=== PATIENT | female | born 1980 | race Caucasian/White ===

== ENCOUNTER 2017-03-01 17:06 | Emergency (ER) | payer SELFPAY ==
[~2017-03-01] VITALS: Ht 170.2 cm; Wt 91.5 kg
[~2017-03-01 17:06] MED LIST: CYCL-375 PO; IBUP-1724 PO; LISI-621 PO; LISI1TAB13 PO; TRAM50TA4 PO
[2017-03-01 17:10] VITALS: Ht 170.2 cm; Wt 91.5 kg
--- OUTSIDE RECORDS SUMMARY | 2017-03-01 17:11 | XMS REPORT | Continuity of Care Document ---
Author Author Ev Chiang Ev Address Unknown Phone Unavailable Care Team Providers Care Field Sales Engineer Name Role Phone [employer] Unavailable Unavailable Problems Medications Allergies, Adverse Reactions, Alerts Immunizations Results Vital Signs Encounters Location Location Details Encounter Type Encounter Number Reason For Visit Attending Provider ADM Date DC Date Status Source [facility] [id number] Emergency [id number] Lincoln Teran 06/19/201304/2013 Active [facility], [facility]. Procedures Plan of Care Social History Assessment and Plan Family History Value Date Source Advance Directives Order Name Results Value Date Source
--- OUTSIDE RECORDS SUMMARY | 2017-03-01 17:11 | XMS REPORT | Continuity of Care Document ---
Author Author [facility] Organization [facility] Address Unknown Phone Unavailable Care Team Providers Care Color Shop Helper Name Role Phone Carmen Bhatt Primary Care Physician [phone] Source Comments Some departments are not documenting in the electronic medical record. If you do not see the information that you expected, contact Release of Information in the Health Information Management department at [phone] for further assistance in locating additional records.[facility] Active Allergies and Adverse Reactions No Known Allergies Current Medications Prescription Sig. Disp. Refills Start End Date Status Date PRAMIPEXOLE DI-HCL Take by mouth. Active (MIRAPEX PO) CYCLOBENZAPRINE HCL Take by mouth. Active (FLEXERIL PO) trimethoprim/sulfamethoxa Take 1 Tab by mouth Twice 20 0 03/04/20 Active zole (BACTRIM DS) 160/800 Daily. 09 mg tablet Active Problems Not on file Social History Tobacco Use Types Packs/Day Years Used Date Never Smoker Alcohol Use Drinks/Week oz/Week Comments No Last Filed Vital Signs Vital Sign Reading Time Taken Blood Pressure 146/89 03/04/2009 3:47 PM CDT Pulse 120 03/04/2009 3:47 PM CDT Temperature 36.9 C (98.4 F) 03/04/2009 3:47 PM CDT Respiratory Rate - - Height - - Weight - - Body Mass Index - - Oxygen Saturation 99% 03/04/2009 3:47 PM CDT Plan of Care Health Maintenance Due Date Last Done Comments Physical (Comprehensive) 1987 Exam Pertussis Vaccine 1991 Tetanus Vaccine 1997 Cervical Cancer Screening 2001 Influenza Vaccine 06/13/2017 Results from Last 3 Months Not on file
--- OUTSIDE RECORDS SUMMARY | 2017-03-01 17:12 | XMS REPORT | Continuity of Care Document ---
Author Author [facility] Organization [facility] Address Unknown Phone Unavailable Support Name Relationship Address Phone FEBRUARY, CHON M DO Caregiver [address] [place] [address] Unavailable RL STEELE Next Of Kin [address] [place], [place] [id number] Insurance Providers Guarantor Lexi Ortiz Address [address] [place] [address] Email DENIED 12-11-16 Payer Self Pay Subscriber's Name Lexi Ortiz Relationship 18 Self Chief Complaint and Reason for Visit Chief Complaint Neck Pain Reason for Visit [id number] Muscle cramps Hypertension Problems Active Problems Medical Problem Onset Date Status Muscle cramps Unknown Acute Overuse syndrome of neck Unknown Acute Past Problems Medical Problem Onset Date Acute bronchitis Unknown Cough Unknown Hypertension Unknown Pneumonia Unknown Wheezing Unknown Medications Current Home Medications Medication Dose Units Route Directions Days Qty Instructions Start Date Cyclobenzaprine Hcl 10 Mg Tablet 1 Tab Oral Three Times A Day for Muscle Pain 20 Tablet 12/11/16 Ibuprofen 200 Mg Tablet 800 Mg Oral Every 8 Hours as needed for Pain 08/16/16 Lisinopril 20 Mg Tablet 20 Mg Oral Daily 08/16/16 Lisinopril/Hydrochlorothiazide (Lisinopril-Hctz 20-25 Mg Tab) 1 Each Tablet 1 Tab Oral Daily 30 12/11/16 Tramadol Hcl 50 Mg Tablet 50 Mg Oral Q6h/0300,0900,1500,2100 for Pain 20 Tablet Take 1 tablet, by mouth, every 6 hours. 12/11/16 Past Home Medications Medication Directions Ordered Status Albuterol Sulfate (Proair Hfa 90 Mcg/Actuation) 8.5 Gm Hfa.aer.ad, 2 Puff Inhalation Every 4 Hours as needed for Wheezing 08/19/16 Discontinued Albuterol Sulfate 2.5 Mg/0.5 Ml Vial.neb, 1 Vial Aerosol Tx. Every 4 Hours Discontinued Azithromycin 250 Mg Tablet, 1 Tab Oral Daily 08/17/16 Discontinued Hydrocodone/Acetaminophen (Ivins 5-325 Tablet) 5-325 Tablet, 0.5-1 Tab Oral Four Times Daily as needed for Cough 08/17/16 Discontinued Prednisone 20 Mg Tablet, 20 Mg Oral Per Comments 08/19/16 Discontinued Social History Social History Problem Response Recorded Date/Time Onset Date Status Hx Substance Use No 12/11/2016 10:48pm Not Applicable Not Applicable Hx Alcohol Use Y OCC 12/11/2016 10:48pm Not Applicable Not Applicable Query Response Start Date Stop Date Smoking Status Current every day smoker Hospital Discharge Instructions No hospital discharge instructions. Plan of Care Discharge Date 12/11/16 10:45pm Disposition 01 DISCHARGED HOME, SELF-CARE Condition at Discharge Stable Instructions/Education Provided Hypertension (ED) Acute Neck Pain (ED) Prescriptions See Medication Section Referrals [facility] Order Date: 1 Week Note: Additional Instructions/Education HEAT OR ICE TO NECK FOR COMFORT. CONTINUE MOTRIN 800 MG EVERY 8 HOURS; SUPPLEMENT WITH TRAMADOL FOR SEVERE PAIN. USE FLEXERIL EVERY 8 HOURS FOR MUSCLE SPASMS. Functional Status No functional status results. Allergies, Adverse Reactions, Alerts Allergen Type Severity Reaction Status Last Updated Morphine Allergy Unknown HIVES Active 08/19/16 Immunizations Query Response on File Recorded Date/Time Influenza Vaccine Hx no 12/11/16 10:48pm Vital Signs Acute Vital Signs Vital Response Date/Time Temperature (Fahrenheit) 98.1 deg F (96.8 - 99.1) 12/11/2016 10:43pm Temperature (Calculated Celsius) 36.27317 degrees C (36.0 - 37.3) 12/11/2016 10:43pm Pulse Rate (adult) 90 bpm (60 - 100) 12/11/2016 10:43pm Respiratory Rate 16 breaths/min (10 - 20) 12/11/2016 10:43pm O2 Sat by Pulse Oximetry 97 % (90 - 100) 12/11/2016 10:43pm Blood Pressure 168/102 mm Hg 12/11/2016 10:43pm Height (Feet) 5 feet 12/11/2016 9:30pm Height (Inches) 7.00 inches 12/11/2016 9:30pm Weight (Kilograms) 93.700 kg 12/11/2016 9:30pm Body Mass Index (BMI) 32.0 12/11/2016 9:30pm Results No known relevant diagnostic tests, laboratory data and/or discharge summary. Procedures No known history of procedures. Encounters Encounter Location Arrival/Admit Date Discharge/Depart Date Attending Provider Departed Emergency Room [facility] 12/11/16 9:30pm 12/11/16 10: 45pm CHON COSTELLO DO Recent Diagnosis
--- OUTSIDE RECORDS SUMMARY | 2017-03-01 17:12 | XMS REPORT | Continuity of Care Document ---
Author Author [facility] Organization [facility] Address Unknown Phone Unavailable Allergies Active Description Code Type Severity Reaction Onset Reported/Identified Relationship to Patient Clinical Status Yes No Known Contrast Allergies No Known Contrast Allergies Drug Allergy Unknown N/A 03/14/2007 Yes No Known Drug Allergies No Known Drug Allergies Drug Allergy Unknown N/A 03/14/2007 Yes No Known Food Allergies No Known Food Allergies Drug Allergy Unknown N/A 03/14/2007 Yes NO KNOWN LATEX ALLERGY/SENSITI NO KNOWN LATEX ALLERGY/SENSITI Drug Allergy Unknown N/A 2006 Yes morphine morphine Drug Allergy Severe HIVES 01/20/2017 Medications Medication Packaging Start Date Stop Date Route Dosage Sig Sertraline HCl 100 MG Oral Tablet UD 02/04/2017 04/06/2017 ORAL 100MG Take 1/2 po daily for 1 week and then increase to 1 po daily HydrOXYzine HCl 25 MG Oral Tablet UD 02/04/2017 05/06/2017 ORAL 25MG Take 1 po TID prn anxiety Problems Date Dx Coded Attending Type Code Diagnosis Diagnosed By 01/27/2017 F F41.0 Panic disorder [episodic paroxysmal anxiety] without agoraphobia [facility] 01/27/2017 F F41.0 Panic disorder [episodic paroxysmal anxiety] without agoraphobia Psy, Batch 01/27/2017 F F90.1 Attention-deficit hyperactivity disorder, predominantly hyperactive type Psy, Batch 01/27/2017 F F41.1 Generalized anxiety disorder Psy, Batch 01/27/2017 F F41.1 Generalized anxiety disorder Kathleen, [facility] 01/27/2017 F F90.1 Attention-deficit hyperactivity disorder, predominantly hyperactive type Kathleen [facility] 01/27/2017 F I10 Essential (primary) hypertension Kathleen [facility] 01/27/2017 F Z56.0 Unemployment, unspecified [facility] 01/27/2017 F Z59.1 Inadequate housing [facility] 01/27/2017 F Z59.5 Extreme poverty Beatriz Wang 01/27/2017 F Z75.3 Unavailability and inaccessibility of health-care facilities Beatriz Wang 02/04/2017 F F41.0 Panic disorder [episodic paroxysmal anxiety] without agoraphobia Constance Bullock 02/04/2017 F F41.1 Generalized anxiety disorder Constance Bullock 02/04/2017 F F43.10 Post-traumatic stress disorder, unspecified Constance Bullock 02/04/2017 F F90.1 Attention-deficit hyperactivity disorder, predominantly hyperactive type Constance Bullock 02/04/2017 F I10 Essential (primary) hypertension Constance Bullock 02/04/2017 F Z56.0 Unemployment, unspecified Constance Bullock 02/04/2017 F Z59.1 Inadequate housing Constance Bullock 02/04/2017 F Z59.5 Extreme poverty Constance Bullock 02/04/2017 F Z75.3 Unavailability and inaccessibility of health-care facilities Constance Bullock 02/04/2017 F F41.0 Panic disorder [episodic paroxysmal anxiety] without agoraphobia Allie Bhatt 02/04/2017 F F41.1 Generalized anxiety disorder Allie Bhatt 02/04/2017 F F90.1 Attention-deficit hyperactivity disorder, predominantly hyperactive type Allie Bhatt 02/04/2017 F Z56.0 Unemployment, unspecified Allie Bhatt 02/04/2017 F F41.0 Panic disorder [episodic paroxysmal anxiety] without agoraphobia Psy, Batch 02/04/2017 F F41.1 Generalized anxiety disorder Psy, Batch 02/04/2017 F F90.1 Attention-deficit hyperactivity disorder, predominantly hyperactive type Psy, Batch 02/04/2017 F Z56.0 Unemployment, unspecified Psy, Batch Procedures Code [place] [address] Beatriz Wange 01/27/2017 [id number] Beatriz Wange 01/27/2017 54885 OFFICE/OUTPATIENT VISIT, LORAINE Bullock Constance R 02/04/2017 [id number] OFFICE/OUTPATIENT VISIT, LORAINE Bullock Constance R 02/04/2017 Results Test Result Range CHEM/HEM PROFILE-BEDSIDE - 01/20/17 00:51 POTASSIUM 3.6 mmol/L 3.5-5.3 METHOD Bedside ANION GAP 15 mmol/L 10-20 METHOD Bedside GLUCOSE 98 mg/dL 70-99 BLOOD UREA NITROGEN 17 mg/dL 7-20 CREATININE 0.7 mg/dL 0.6-1.0 HEMOGLOBIN 14.3 gm/dL 12.0-16.0 HEMATOCRIT 42.0 % 37.0-47.0 SODIUM 142 mmol/L 135-148 CHLORIDE 107 mmol/L 98-110 CARBON DIOXIDE 25 mmol/L 21-32 CALCIUM IONIZED 4.6 mg/dL 4.5-5.3 CBC W/DIFF - 01/20/17 01:00 BASOPHIL # 0.1 k/cumm 0.0-0.2 BASOPHIL % 1 % 0-1 EOSINOPHIL # 0.4 k/cumm 0.1-0.5 EOSINOPHIL % 3 % 2-4 GRANULOCYTE # 8.8 k/cumm 2.0-9.0 GRANULOCYTE % 67 % 50-75 LYMPHOCYTE # 3.2 k/cumm 1.0-4.0 LYMPHOCYTE % 24 % 20-30 MEAN CELL HGB 30.2 pg 27.0-33.0 MEAN CELL HGB CONCENTRATION 32.8 g/dL 32.0-37.0 MEAN CELL VOLUME 92.1 fl 80.0-100.0 MONOCYTE # 0.6 k/cumm 0.1-1.0 MONOCYTE % 5 % 4-6 RED BLOOD CELL 4.44 m/cumm 4.00-6.00 RED CELL DISTRIBUTION WIDTH 13.1 % 11.0- 15.6 WHITE BLOOD CELL 13.2 k/cumm 5.0-10.0 HEMOGLOBIN 13.4 gm/dL 12.0-16.0 HEMATOCRIT 40.9 % 37.0-47.0 PLATELET COUNT 276 k/cumm 150-400 TROPONIN I BEDSIDE - 01/20/17 01:00 METHOD Bedside TROPONIN I < 0.04 ng/mL < 0.11 Encounters ACCT No. Visit Date/Time Discharge Status Pt. Type Provider Facility Loc./Unit Complaint [id number] 09/27/2014 15:40:00 09/27/2014 16:14:00 DIS Emergency [facility] [id number] 09/15/2014 13:35:00 09/15/2014 15:36:00 [id number] 02/10/2014 12:59:00 02/10/2014 15:42:00 DIS Emergency [facility]
[2017-03-01] MEDS ORDERED: ACET-62 PO (17:49)
[2017-03-01] MEDS ORDERED: AMLO10TA4 PO (17:51)
--- NOTE | 2017-03-01 18:20 | NUR ---
REPORT REPORT TO AND CARE ASSUMED BY ROWAN GRAY
--- OUTSIDE RECORDS SUMMARY | 2017-03-01 18:28 | XMS REPORT | Continuity of Care Document ---
Author Author Ev Chiang Ev Address Unknown Phone Unavailable Care Team Providers Care Color Technician Name Role Phone [employer] Unavailable Unavailable Problems Medications Allergies, Adverse Reactions, Alerts Immunizations Results Vital Signs Encounters Location Location Details Encounter Type Encounter Number Reason For Visit Attending Provider ADM Date DC Date Status Source [facility] [id number] Emergency [id number] Lincoln Teran 06/19/201304/2013 Active [facility], [facility]. Procedures Plan of Care Social History Assessment and Plan Family History Value Date Source Advance Directives Order Name Results Value Date Source
--- OUTSIDE RECORDS SUMMARY | 2017-03-01 18:28 | XMS REPORT | Continuity of Care Document ---
Author Author [facility] Organization [facility] Address Unknown Phone Unavailable Care Team Providers Care Insurance Underwriter Sales Name Role Phone Carmen Bhatt Primary Care Physician [phone] Source Comments Some departments are not documenting in the electronic medical record. If you do not see the information that you expected, contact Release of Information in the Health Information Management department at [phone] for further assistance in locating additional records.[facility] Active Allergies and Adverse Reactions No Known [...]
--- OUTSIDE RECORDS SUMMARY | 2017-03-01 18:29 | XMS REPORT | Continuity of Care Document ---
Author Author [facility] Organization [facility] Address Unknown Phone Unavailable Allergies Active Description [...] disorder [episodic paroxysmal anxiety] without agoraphobia [facility] 01/27/2017 F F41.0 Panic disorder [episodic paroxysmal anxiety] without agoraphobia Psy, Batch 01/27/2017 F F90.1 Attention-deficit hyperactivity disorder, predominantly hyperactive type Psy, Batch 01/27/2017 F F41.1 Generalized anxiety disorder Psy, Batch 01/27/2017 F F41.1 Generalized anxiety disorder Kathleen, [facility] 01/27/2017 F F90.1 Attention-deficit hyperactivity disorder, predominantly hyperactive type Kathleen [facility] 01/27/2017 F I10 Essential (primary) hypertension Kathleen [facility] 01/27/2017 F Z56.0 Unemployment, unspecified Kathleen [facility] 01/27/2017 F Z59.1 Inadequate housing Kathleen [facility] 01/27/2017 F Z59.5 Extreme poverty Beatriz Wang 01/27/2017 F Z75.3 Unavailability and inaccessibility of health-care facilities Beatriz Wang 02/04/2017 F F41.0 Panic disorder [episodic paroxysmal anxiety] without agoraphobia Contsance Bullock 02/04/2017 F F41.1 Generalized anxiety disorder Constance Bullock 02/04/2017 F F43.10 Post-traumatic stress disorder, unspecified Constance Bullock 02/04/2017 F F90.1 Attention-deficit hyperactivity disorder, predominantly hyperactive type Constance Bullock 02/04/2017 F I10 Essential (primary) hypertension Constance Bullock 02/04/2017 F Z56.0 Unemployment, unspecified Constance Bulolck 02/04/2017 F Z59.1 Inadequate housing Constance Bullock [...] Procedures Code [place] [address] Beatriz Wange 01/27/2017 [id number] Beatriz Wange 01/27/2017 [id number] OFFICE/OUTPATIENT VISIT, LORAINE Bullock Constance R 02/04/2017 [id number] OFFICE/OUTPATIENT VISIT, LORAINE Bullock Constance R 02/04/2017 [...] Status Pt. Type Provider Facility Loc./Unit Complaint [id number] 09/27/2014 15:40:00 09/27/2014 16:14:00 DIS Emergency [facility] [id number] 09/15/2014 13:35:00 09/15/2014 15:36:00 [id number]/10[facility]2014 12:59:00 02/10/2014 15:42:00 DIS Emergency [facility]
--- NOTE | 2017-03-01 18:45 | NUR ---
IMAGING PT TO IMAGING VIA CART AT THIS TIME. C-COLLAR IN PLACE. NO SIGN OF DISTRESS. TRANSFERRED FROM CART TO IMAGING BED X3 - C-SPINE MAINTAINED.
--- NOTE | 2017-03-01 18:51 | ERPDOC ---
Departure Disposition Decision Date: March 01, 2017 Disposition Decision Time: 19:40 Disposition: 01 DISCHARGED HOME, SELF-CARE Impression Impression Impression: Primary Impression: Muscle strain Severity: Moderate Condition: Improved Seen By: Physician only Referrals: [facility] 2 Days Patient Instructions: Head Injury (ED), Muscle Spasm (ED) Problems/Meds/Labs Reviewed?: Yes Medications reviewed and manag: Yes Follow up care ordered?: Yes Mental Status: Alert, Oriented Scripts Cyclobenzaprine HCl (Cyclobenzaprine HCl) 10 Mg Tablet 10 MG PO TID Y for MUSCLE SPASM for 5 Days, #15 TAB 0 Refills Prov: PATTIE SARKAR DO 03/01/17 Oxycodone HCl/Acetaminophen (Percocet 5-325 mg Tablet) 5-325 Tablet 1 TAB PO Q4HR Y for PAIN for 3 Days, #18 TAB 0 Refills Prov: PATTIE SARKAR DO 03/01/17 HPI - Fall/Injury General Chief Complaint: Fall Stated Complaint: FELL,BACK PAIN Time Seen by Provider: 18:08 Source: patient Exam Limitations: no limitations HPI - Fall/Injury Initial Comments 36-year-old female presents to emergency department with a chief complaint of a fall. Patient [place]. Patient notes that she did hit her head and is complaining of head and neck discomfort. Patient describes her discomfort as moderate. It is sharp. There is no radiation. Pain improves with analgesic pain medication and increases with movement. Patient denies any other injuries. No other complaints or associated symptoms. Her symptoms have been persistent in nature since onset. There was no loss of consciousness. Occurred At: other ([place]) Onset: Constant Allergies: Coded Allergies: morphine (Verified Allergy, Unknown, HIVES, 03/01/17) Past History Past Medical History Metabolic: hypertension Surgical History Denies Surgeries Family History Family History: Negative Social History Smoking Status: Never smoker Does patient use chewing tobac: No Second Hand Exposure: No Substance Use Type: does not use Alcohol Intake: none Review of Systems Constitutional Constitutional: DENIES: chills, fever Eyes General: DENIES: erythema, exudate Lids/Accessories: DENIES: erythema, swelling Vision: DENIES: acuity, blurring ENMT Ears: DENIES: drainage, pain Hearing: DENIES: hearing loss Balance: DENIES: ataxia, falling to one side Sinuses: DENIES: congestion, pain Nose: DENIES: nosebleeds, pain Mouth/Throat: DENIES: painful swallowing, sore throat Teeth: DENIES: pain Jaw: DENIES: pain Cardiovascular Rhythm/Rate: DENIES: irregular beat, palpitations Vascular: DENIES: pedal edema, unilateral swelling Pulmonary Respiratory: DENIES: cough, dyspnea, pleuritic chest pain, sputum GI Upper Abdomen: DENIES: nausea, pain, vomiting Lower Abdomen: DENIES: diarrhea, pain General: DENIES: burning, dysuria, frequency, urgency Musculoskeletal General: pain, tenderness, DENIES: joint pain Integumentary Skin: DENIES: itching, rash Neurological General: DENIES: change in strength, headache, numbness, weakness Psychiatric Psychiatric: DENIES: emotional instability, suicidal ideation/attempt Endocrine Endocrine: DENIES: polydipsia, polyphagia Hematologic/Lymphatic Hematologic/Lymphatic: DENIES: frequent nosebleeds, lymphadenopathy Allergic/Immunological Allergic/Immunoligical: DENIES: allergic reactions, hives Physical Exam General General Nourishment: well nourished, well developed, appears stated age, no acute distress, adult General Body Habitus: well groomed Vitals and Pain First Documented Vital Signs Date Time Temp Pulse Resp B/P Pulse Ox O2 Delivery O2 Flow Rate FiO2 03/01/17 17:10 98.8 122 24 179/119 98 Room Air Weight: Kilograms: 91.500 Height (feet): 5 Height (inches): 7.00 Triage Pain Scale: RN VS reviewed by Provider: Yes Normal Exams: Head: Normocephalic w/o trauma Eyes: Pupils are PERRLA w/ EOMI, No scleral icterus, irritation, or foreign bodies noted ENMT: No facial trauma, nasal exudates, pharyngeal erythema, or exudates are noted Dental: No fractured, loose, or missing teeth noted Neck: without adenopathy, JVD, bruits or thyromegaly Chest/Resp: Clear all new, with good airflow, and symmetry bilaterally CV: Regular rate and rhythm, without murmur or gallop, Pulses 2+ all extremities, capillary refill, <2 seconds all ext., no pedal edema noted Abdomen: Bowel sounds positive, soft, non-tender, non-distended, no hepatosplenomegaly, masses or bruits noted Lymphatic: No lymphadenopathy, or lymphedema noted Musculoskeletal: No tenderness, or deformity noted, good range of motion, all extremities Integumentary: No rashes, hives, or bruising noted, hair and nails, without abnormality Neurologic: Patient is alert, and oriented, cranial nerves, motor/sensory/ cerebellar, exams w/o gross deficits, to observation Psychiatric: Patient exhibits, appropriate attention, emotion and affect Musculoskeletal (brief) Comments Generalized tenderness to the lower cervical/thoracic spine. No tenderness to palpation in the lumbar spine. There is no midline tenderness or deformity in any of the spinal column. Neurologic (brief) Comments Alert and oriented 4. Cranial nerve 2 - 12 intact. Sensation intact. Normal motor. Normal gait. Normal coordination. Normal strength. Normal speech. Absent Babinski bilaterally. Reflexes 2/4 in all extremities. Gait is normal. Unremarkable neurologic examination. No focal neurologic deficit. Differential Diagnoses Considering: Concussion, Contusion, Sprain, Strain Progress Results/Orders Orders Procedure Category Date Status Time Ct Head W/O Contrast CT 03/01/17 Logged 18:15 Ct Cervical Spine W/O CT 03/01/17 Taken Contrast 18:15 Ct Thoracic Spine W/O CT 03/01/17 Logged Contrast 18:15 Oxycodone/Apap PHA 03/01/17 Complete 7.5/325 (Percocet 19:45 Ondansetron Odt PHA 03/01/17 Complete (Zofran Odt) 19:45 Oxycodone/Apap 5/325 PHA 03/01/17 In Process (Prepack) (Percocet 20:00 Medications Current ED Medications Oxycodone/ Acetaminophen (Percocet 7.5/ 325) 1 tab O ONCE PO Last administered on 03/01/17 19:45; Start 03/01/17 at 19:45; Stop 03/01/17 at 19:46 ; Status DC Ondansetron HCl (Zofran Odt) 4 mg O ONCE PO Last administered on 03/01/17t 19: 45; Start 03/01/17 at 19:45; Stop 03/01/17 at 19:46; Status DC Progress Progress Imaging is discussed in detail with the patient and questions are answered. Patient is given analgesic pain medication with improvement of symptoms in the emergency department. She is discharged home in improved condition. Patient is to follow up as instructed. Patient's to return to the emergency Department if her condition worsens or changes in any manner. Patient is in agreement with the current plan of management. Patient is provided with prescriptions for Percocet and Flexeril. She is to continue using Advil 600 mg 3 times per day as needed for pain. Patient was asymptomatic with her elevated blood pressure. Further evaluation and treatment of blood pressure was offered and declined by patient. Patient will take her hypertensive medications at home when she arrives home. CT CT : CT: Head no contrast Interpretation: Normal (cervical spine: Negative. Thoracic spine: Negative. ), Faxed Report PATTIE SARKAR DO March 01, 2017 18:51
--- NOTE | 2017-03-01 19:00 | NUR ---
IMAGING PT RETURN FROM IMAGING AT THIS TIME.
--- NOTE | 2017-03-01 19:27 | NUR ---
STATUS PT REMAINS SUPINE, C-COLLAR IN PLACE. ADULT MALE REMAINS AT BEDSIDE. PT TEARFUL, REPORTS PAIN 8/10 TO POSTERIOR NECK. REVIEWED PLAN OF CARE AND PENDING RESULTS OF CT SCAN. PT VERBALIZED UNDERSTANDING.
[2017-03-01] MEDS ORDERED: ONDANSETRON ODT 4 MG TAB PO ONE (19:45)
[2017-03-01] MEDS ORDERED: CYCL-375 PO (19:56)
[2017-03-01] MEDS ORDERED: OXYC1TAB8 PO (19:56)
[2017-03-01] MEDS ORDERED: OXYCODONE/APAP 5/325 (Prepack) SENT HOME ONE (20:00)
[2017-03-01 20:05] VITALS: BP 164/106; PULSE 87; RESP 20; TEMP 98.4; O2SAT 97
--- NOTE | 2017-03-01 20:05 | NUR ---
DEPART PT GIVEN DI FOR HEAD INJURY, MUSCLE SPASM, FLEXERIL, PERCOCET, F/U. RX PROVIDED FOR FLEXERIL AND PERCOCET. PREPAK PROVIDED FOR PERCOCET. VERBALIZES UNDERESTANDING OF DI, MEDS, AND F/U. QUESTIONS ASKED/ANSWERED - DENIES FURTHER QUESTIONS/NEEDS AT THIS TIME. PERSONAL BELONGINGS GATHERED. PT ESCORTED/AMBULATED TO ED EXIT - GAIT STABLE, NO SIGN OF DISTRESS AT THIS TIME.
--- NOTE | 2017-03-02 10:51 | DI ---
Indication: ITS.REASON: Fall with head trauma PROCEDURE: CT HEAD W/O CONTRAST: Encounter: Initial Comparison: None Technique: Axial CT images through the head were performed without contrast. Iterative Reconstruction dose reducing technique was utilized. FINDINGS: The ventricles are of normal size, shape, and configuration for the patient's age. There is no evidence of acute intracranial hemorrhage, midline displacement, or mass effect. The CT attenuation of the brain parenchyma is normal within the cerebellum, brain stem, and cerebral hemispheres. The tympanic cavities and mastoid air cells are free of appreciable disease. There are no definite fractures of the skull base, calvarium, or visualized portion of the midface. Sinus disease. IMPRESSION: No CT evidence of acute traumatic intracranial injury. There is a preliminary report by [facility]. .
--- NOTE | 2017-03-02 10:54 | DI ---
Indication: ITS.REASON: Fall yesterday with pain PROCEDURE: CT THORACIC SPINE W/O CONTRAST: Encounter: Initial Comparison: None: Technique: Axial noncontrast CT imaging of the thoracic spine was performed with coronal and sagittal two-dimensional reformats. Automated Exposure Control and Iterative Reconstruction dose reducing techniques were utilized. FINDINGS: Alignment of the thoracic spine is normal for the patient's age. There are minimal, age appropriate, degenerative changes within the intervertebral disk and facet joints in the thoracic spine. No fractures are evident in the thoracic spine. The vertebral bodies and facet joints are normally aligned. There is no evidence of significant spinal stenosis, foraminal compromise, epidural hematoma, or significant disk herniation. The paraspinal soft tissues and central spinal canal appear unremarkable. IMPRESSION: No acute traumatic abnormality of the thoracic spine. There is a preliminary report by [facility]. .
--- NOTE | 2017-03-02 10:56 | DI ---
Indication: ITS.REASON: Neck pain, injury PROCEDURE: CT CERVICAL SPINE W/O CONTRAST: Encounter: Initial Comparison: None Technique: Axial CT images through the cervical spine were performed without contrast. Coronal and sagittal reformatted images were also obtained. Automated Exposure Control and Iterative Reconstruction dose reducing techniques were utilized. FINDINGS: The alignment of the cervical spine is slightly straightened which could be due to prior surgery, positioning or muscular spasm/strain. Anterior C5-C6 spinal fusion with interbody bone graft. Hardware appears intact. There is no evidence of acute fracture or subluxation of the cervical spine. The atlantoaxial articulation, dens, and upper cervical spine demonstrate no subluxation. The paraspinal soft tissues and spinal canal appear unremarkable. IMPRESSION: No acute traumatic abnormality of the cervical spine. There is a preliminary report by [facility]. .
== END 2017-03-01 20:05 | disposition home or self-care (01) ==
LOC: ED 17:06
DX: S16.1XXA Strain of muscle, fascia and tendon at neck level, initial encounter (principal); S09.90XA Unspecified injury of head, initial encounter; W01.0XXA Fall on same level from slipping, tripping and stumbling without subsequent striking against object, initial encounter; Y93.01 Activity, walking, marching and hiking; Y92.39 Other specified sports and athletic area as the place of occurrence of the external cause; Y99.8 Other external cause status